=== PATIENT | female | born 1950 | race Two or more races ===

== ENCOUNTER 2024-03-05 10:17 | Inpatient (IN) | payer MEDICARE, OTHER ==
[~2024-03-05] VITALS: Ht 153.9 cm; Wt 69.9 kg
[2024-03-05 11:08] LABS: HEMOGLOBIN. 9.5 g/dL (12.0-16.0); MEAN CORPUSCULAR HEMOGLOBIN 29.7 pg (28.0-32.0); MEAN CORPUSCULAR HGB CONC 32.7 g/dL (31.0-37.0); MEAN CORPUSCULAR VOLUME 90.9 fL (81.0-99.0); MEAN PLATELET VOLUME 7.3 fl (7.4-10.4); PLATELET 193 x1000/uL (130-400); POTASSIUM 4.1 mEq/L (3.5-5.1); RED BLOOD CELL COUNT 3.19 mill/uL (4.2-5.4); RED CELL DISTRIBUTION WIDTH 13.9 % (11.6-14.6); WHITE BLOOD COUNT 6.7 x1000/uL (4.5-11.0)
[2024-03-05 11:09] LABS: CALCIUM 9.4 mg/dL (8.7-10.4)
[2024-03-05 11:14] LABS: CREATININE 2.5 mg/dL (0.6-1.0)
[2024-03-05 11:16] LABS: LACTIC ACID 2.1 mmol/L (0.4-2.0)
[2024-03-05 11:20] LABS: INR 1.1; PROTHROMBIN TIME 11.8 sec (9.6-11.0)
[2024-03-05 11:27] LABS: DIFFERENTIAL COMMENT 1
[2024-03-05] MEDS: SODIUM CHLORIDE 0.9% (SEPSIS BOLUS) IV ONE (11:44)
[2024-03-05] MEDS: PIPERACILLIN/TAZO 3.375G/50ML 50 ML IV ONE (11:44)
[2024-03-05 12:05] LABS: PLATELET ESTIMATE NORMAL
[2024-03-05] MEDS: VANCOMYCIN 1G PREMIX 200 ML IV ONE (12:08)
[2024-03-05 12:20] LABS: CLARITY URINE CLOUDY (CLEAR); COLOR URINE YELLOW (YELLOW); GLUCOSE URINE NEGATIVE (NEGATIVE); KETONES URINE NEGATIVE (NEGATIVE); LEUKOCYTE ESTERASE URINE 3+ (NEGATIVE); NITRITE URINE NEGATIVE (NEGATIVE); OCCULT BLOOD URINE 2+ (NEGATIVE); PH URINE 5.5 (4.5-8.0); PROTEIN URINE TRACE (NEGATIVE); SPECIFIC GRAVITY URINE 1.011 (1.005-1.030); UROBILINOGEN URINE 0.2 E.U./dL (0.2-1.0)
[2024-03-05 12:34] LABS: BACTERIA URINE 4+; RBC URINE 15-25 /hpf (0-2); SQUAMOUS EPITHELIAL CELL URINE 3+ /lpf (RARE/1+); WBC URINE 50-100 /hpf (0-2); YEAST URINE NONE SEEN
[2024-03-05] MEDS: ACETAMINOPHEN 1000MG/100ML 100 ML IV ONE (13:15)
[2024-03-05] MEDS ORDERED: ONDANSETRON HCL 4MG/2ML INJ IV PRN (14:45)
[2024-03-05] MEDS ORDERED: ACETAMINOPHEN 325MG TABLET PO PRN (14:45)
[2024-03-05] MEDS: SODIUM CHLORIDE 0.9% 1,000 ML IV SCH (14:45)
[2024-03-05 14:56] VITALS: BP 89/37; PULSE 127; RESP 20; TEMP 37.4188
[2024-03-05 16:00] VITALS: BP 89/37; PULSE 127; RESP 20; TEMP 37.39188; O2SAT 98
[2024-03-05] MEDS: ENOXAPARIN 30MG/0.3ML SYR SUBCUT SCH (16:00)
[2024-03-05 17:10] LABS: IRON 15 ug/dL (50-170)
[2024-03-05 17:13] LABS: TOTAL IRON BINDING CAPACITY 373 ug/dl (250-425)
[2024-03-05 18:54] LABS: FERRITIN 367 ng/mL (10-291)
[2024-03-05 18:55] LABS: FOLIC ACID (FOLATE) SERUM 6.97 ng/mL (>5.38); VITAMIN B12 SERUM 270 pg/mL (211-911)
[2024-03-05] MEDS: DEXTROSE 50% WATER 50ML SYRINGE IV ONE (19:11)
[2024-03-05] MEDS: PIPERACILLIN/TAZO 3.375G/50ML 50 ML IV SCH (21:23)
[2024-03-05] MEDS: KETOROLAC 15MG/ML VIAL IV NR (23:15)
[2024-03-06] VITALS (38 sets, daily range): BP systolic 81–207; BP diastolic 53–173; PULSE 67–125; RESP 18–35; TEMP 36.05844–36.3918; O2SAT 92–99
[2024-03-06] MEDS: SODIUM CHLORIDE 0.9% (SEPSIS BOLUS) IV ONE (01:30)
[2024-03-06] MEDS: ACETAMINOPHEN 325MG TABLET PO PRN (04:47)
[2024-03-06] MEDS: DEXTROSE 50% WATER 50ML SYRINGE IV PRN (05:38)
[2024-03-06 06:07] LABS: POTASSIUM 3.8 mEq/L (3.5-5.1)
[2024-03-06 06:08] LABS: CALCIUM 8.4 mg/dL (8.7-10.4)
[2024-03-06 06:25] LABS: CREATININE 3.7 mg/dL (0.6-1.0)
[2024-03-06] MEDS: DEXT 5%/0.45% NACL 1000ML 1,000 ML IV SCH (07:15)
[2024-03-06] MEDS: FAMOTIDINE 20MG/2ML VIAL IV SCH (09:32)
[2024-03-06] MEDS: VANCOMYCIN 500MG/100ML IV NR (11:02)
[2024-03-06] MEDS ORDERED: MORPHINE SULFATE 2 MG/ML INJ (NOT FOR IM USE) IV PRN (12:00)
[2024-03-06 12:25] LABS: HEMATOCRIT. 29.3 % (36.0-48.0); HEMOGLOBIN. 8.9 g/dL (12.0-16.0); MEAN CORPUSCULAR HEMOGLOBIN 29.2 pg (28.0-32.0); MEAN CORPUSCULAR HGB CONC 30.5 g/dL (31.0-37.0); MEAN PLATELET VOLUME 8.6 fl (7.4-10.4); PLATELET 104 x1000/uL (130-400); RED BLOOD CELL COUNT 3.06 mill/uL (4.2-5.4); RED CELL DISTRIBUTION WIDTH 15.7 % (11.6-14.6); WHITE BLOOD COUNT 29.5 x1000/uL (4.5-11.0)
[2024-03-06 12:38] LABS: DIFFERENTIAL COMMENT 1; MEAN CORPUSCULAR VOLUME 95.7 fL (81.0-99.0)
[2024-03-06 13:22] LABS: POTASSIUM 4.8 mEq/L (3.5-5.1)
[2024-03-06 13:23] LABS: CALCIUM 8.7 mg/dL (8.7-10.4)
[2024-03-06 13:28] LABS: CREATININE 3.6 mg/dL (0.6-1.0)
[2024-03-06] MEDS: MEROPENEM 500 MG in SODIUM CHLORIDE 0.9% 50 ML IV SCH (14:06)
[2024-03-06] MEDS: NOREPINEPHRINE 8MG/250ML PMX 250 ML IV PRN (15:31)
[2024-03-06 16:27] LABS: LACTIC ACID 11.1 mmol/L (0.4-2.0)
[2024-03-06] MEDS: IPRATROPIUM/ALBUTEROL 0.5-3(2.5)MG/3ML NEB HHN PRN (16:51)
[2024-03-06] MEDS ORDERED: NALOXONE HCL 0.4MG/ML VIAL IV PRN (18:45)
[2024-03-06] MEDS: DEXT 5%/0.9% NACL 1,000 ML IV SCH (18:50)
[2024-03-06 19:22] LABS: ANISOCYTOSIS 1+; PLATELET ESTIMATE DECREASED
[2024-03-07] VITALS (99 sets, daily range): BP systolic 78–148; BP diastolic 38–110; PULSE 91–120; RESP 15–34; TEMP 36.3918–36.9474; O2SAT 88–100
[2024-03-07] MEDS: PHENYLEPHRINE 100 MG in DEXT 5% WATER 240 ML IV PRN (00:53)
[2024-03-07 05:56] LABS: POTASSIUM 4.9 mEq/L (3.5-5.1)
[2024-03-07 05:57] LABS: CALCIUM 8.7 mg/dL (8.7-10.4)
[2024-03-07] MEDS: SODIUM CHLORIDE 0.9% 500 ML IV ONE (08:15)
[2024-03-07 09:46] LABS: HEMATOCRIT. 28.8 % (36.0-48.0); HEMOGLOBIN. 9.3 g/dL (12.0-16.0); MEAN CORPUSCULAR HEMOGLOBIN 29.2 pg (28.0-32.0); MEAN CORPUSCULAR HGB CONC 32.1 g/dL (31.0-37.0); MEAN PLATELET VOLUME 9.4 fl (7.4-10.4); PLATELET 104 x1000/uL (130-400); RED BLOOD CELL COUNT 3.17 mill/uL (4.2-5.4); RED CELL DISTRIBUTION WIDTH 14.7 % (11.6-14.6)
[2024-03-07] MEDS: DEXT 5%/0.45% NACL 1000ML 1,000 ML IV SCH (09:53)
[2024-03-07] MEDS: MIDODRINE HCL 5MG TABLET PO SCH ×2 (09:53→17:57)
[2024-03-07 10:02] LABS: DIFFERENTIAL COMMENT 1
[2024-03-07] MEDS: VANCOMYCIN 500MG/100ML IV SCH (14:20)
[2024-03-07] MEDS ORDERED: SODIUM CHLORIDE 0.45% 500 ML IV NR (15:00)
[2024-03-07 15:17] LABS: PLATELET ESTIMATE SLIGHTLY DECREASED
[2024-03-07] MEDS: MEROPENEM 500MG/50ML 50 ML IV SCH (17:56)
[2024-03-07] MEDS: SODIUM CHLORIDE 0.45% 1,000 ML IV ONE (17:57)
[2024-03-07] MEDS ORDERED: MEROPENEM 1G/100ML 100 ML IV SCH (22:00)
[2024-03-07] MEDS ORDERED: DEXTROSE 50% WATER 50ML SYRINGE IV PRN (23:15)
[2024-03-07] MEDS: DEXTROSE 50% WATER 50ML SYRINGE IV PRN (23:40)
[2024-03-08] VITALS (86 sets, daily range): BP systolic 78–148; BP diastolic 48–95; PULSE 77–107; RESP 10–29; TEMP 36.6696–37.00296; O2SAT 92–100
[2024-03-08 07:21] LABS: HEMATOCRIT. 33.3 % (36.0-48.0); HEMOGLOBIN. 10.2 g/dL (12.0-16.0); MEAN CORPUSCULAR HEMOGLOBIN 28.7 pg (28.0-32.0); MEAN CORPUSCULAR HGB CONC 30.6 g/dL (31.0-37.0); MEAN CORPUSCULAR VOLUME 93.7 fL (81.0-99.0); MEAN PLATELET VOLUME 10.6 fl (7.4-10.4); PLATELET 92 x1000/uL (130-400); RED BLOOD CELL COUNT 3.56 mill/uL (4.2-5.4); RED CELL DISTRIBUTION WIDTH 15.8 % (11.6-14.6)
[2024-03-08 07:25] LABS: POTASSIUM 3.6 mEq/L (3.5-5.1)
[2024-03-08 07:26] LABS: CALCIUM 8.5 mg/dL (8.7-10.4)
[2024-03-08 08:11] LABS: DIFFERENTIAL COMMENT 1
[2024-03-08] MEDS: BLOOD SUGAR DIAGNOSTIC STRIP TEST SCH (08:23)
[2024-03-08] MEDS: DEXT 5%/0.45% NACL 1000ML 1,000 ML IV SCH (08:32)
[2024-03-08 10:42] LABS: ALANINE AMINOTRANSFERASE 149 IU/L (10-49); ALBUMIN 3.1 g/dL (3.2-4.8); ASPARTATE AMINOTRANSFERASE 86 IU/L (<34); BILIRUBIN DIRECT 0.2 mg/dL (<=3.0); BILIRUBIN TOTAL 0.4 mg/dL (0.1-1.0); PHOSPHORUS 2.7 mg/dL (2.5-4.9); PROTEIN TOTAL 6.1 g/dL (6.0-8.3)
[2024-03-08 11:25] LABS: ANISOCYTOSIS 1+; PLATELET ESTIMATE DECREASED
[2024-03-08] MEDS: MEGESTROL ACETATE 400 MG/10 ML UDC PO SCH (17:08)
[2024-03-08] MEDS ORDERED: MEGESTROL ACETATE 20MG TABLET PO SCH (18:00)
[2024-03-08] MEDS: ACETAMINOPHEN 500MG TABLET PO SCH (21:14)
[2024-03-09] VITALS (92 sets, daily range): BP systolic 79–134; BP diastolic 53–74; PULSE 74–96; RESP 13–29; TEMP 36.33624–37.16964; O2SAT 98–100
[2024-03-09] MEDS ORDERED: TRAM50TA3 PO (04:22)
[2024-03-09] MEDS ORDERED: ATOR40TA70 PO (04:22)
[2024-03-09] MEDS ORDERED: LINE600T14 PO (04:22)
[2024-03-09] MEDS ORDERED: FURO20TA4 PO (04:22)
[2024-03-09 09:41] LABS: HEMATOCRIT 27.3 % (36.0-48.0); HEMOGLOBIN 8.6 g/dL (12.0-16.0); MEAN CORPUSCULAR HEMOGLOBIN 29.1 pg (28.0-32.0); MEAN CORPUSCULAR HGB CONC 31.4 g/dL (31.0-37.0); MEAN CORPUSCULAR VOLUME 92.8 fL (81.0-99.0); PLATELET 71 x1000/uL (130-400); RED BLOOD CELL COUNT 2.94 mill/uL (4.2-5.4); RED CELL DISTRIBUTION WIDTH 15.8 % (11.6-14.6); WHITE BLOOD COUNT 37.5 x1000/uL (4.5-11.0)
[2024-03-09 10:50] LABS: POTASSIUM 3.6 mEq/L (3.5-5.1)
[2024-03-09 10:51] LABS: CALCIUM 7.9 mg/dL (8.7-10.4)
[2024-03-09 11:28] LABS: CREATININE 1.3 mg/dL (0.6-1.0)
[2024-03-09] MEDS: MEROPENEM 500MG/50ML 50 ML IV NR (14:47)
[2024-03-09] MEDS: MEROPENEM 1GM/50ML DUPLEX 50 ML IV SCH (21:43)
[2024-03-10] VITALS (44 sets, daily range): BP systolic 96–128; BP diastolic 59–90; PULSE 76–100; RESP 12–27; TEMP 36.6696–37.00296; O2SAT 97–100
[2024-03-10 06:34] LABS: HEMATOCRIT. 29.6 % (36.0-48.0); HEMOGLOBIN. 9.3 g/dL (12.0-16.0); MEAN CORPUSCULAR HEMOGLOBIN 29.1 pg (28.0-32.0); MEAN CORPUSCULAR HGB CONC 31.5 g/dL (31.0-37.0); MEAN CORPUSCULAR VOLUME 92.3 fL (81.0-99.0); MEAN PLATELET VOLUME 9.5 fl (7.4-10.4); PLATELET 76 x1000/uL (130-400); RED BLOOD CELL COUNT 3.21 mill/uL (4.2-5.4); RED CELL DISTRIBUTION WIDTH 15.8 % (11.6-14.6)
[2024-03-10 06:36] LABS: POTASSIUM 3.3 mEq/L (3.5-5.1)
[2024-03-10 06:37] LABS: CALCIUM 8.3 mg/dL (8.7-10.4)
[2024-03-10 06:42] LABS: CREATININE 1.2 mg/dL (0.6-1.0)
[2024-03-10 09:04] LABS: DIFFERENTIAL COMMENT 1
[2024-03-10 16:45] LABS: ANISOCYTOSIS 1+; PLATELET ESTIMATE DECREASED
[2024-03-11] VITALS: BP 94/56; PULSE 86; RESP 19; TEMP 36.33624; O2SAT 100
[2024-03-11 04:00] VITALS: BP 98/50; PULSE 88; RESP 18; TEMP 36.28068; O2SAT 96
[2024-03-11 08:00] VITALS: BP 117/68; PULSE 87; RESP 18; TEMP 36.72516; O2SAT 100
[2024-03-11 12:00] VITALS: BP 109/62; PULSE 85; RESP 18; TEMP 36.61404; O2SAT 97
[2024-03-11 18:00] VITALS: BP 114/63; PULSE 91; RESP 18; TEMP 36.55848; O2SAT 97
[2024-03-11 20:00] VITALS: BP 116/61; PULSE 86; RESP 20; TEMP 36.28068; O2SAT 100
[2024-03-12] VITALS: BP 116/74; PULSE 95; RESP 20; TEMP 36.72516; O2SAT 97
[2024-03-12 04:00] VITALS: BP 113/62; PULSE 89; RESP 18; TEMP 36.50292; O2SAT 97
[2024-03-12 08:00] VITALS: BP 116/61; PULSE 86; RESP 20; TEMP 35.61396; O2SAT 97
[2024-03-12] MEDS ORDERED: LIDOCAINE HCL 1% 10 MG/ML 10ML VIAL ONE (08:37)
[2024-03-12] MEDS ORDERED: IOHEXOL-300 50 ML BOTTLE IV ONE (09:30)
[2024-03-12] MEDS: DOCUSATE SODIUM 100MG CAPSULE PO PRN (11:59)
[2024-03-12 12:00] VITALS: BP_SYST 124; BP_SYST 14; BP_DIAS 124; BP_DIAS 64; PULSE 87; RESP 20; TEMP 36.72516; O2SAT 100
[2024-03-12 15:54] LABS: HEMOGLOBIN. 8.8 g/dL (12.0-16.0); MEAN CORPUSCULAR HEMOGLOBIN 29.2 pg (28.0-32.0); MEAN CORPUSCULAR HGB CONC 32.7 g/dL (31.0-37.0); MEAN CORPUSCULAR VOLUME 89.3 fL (81.0-99.0); MEAN PLATELET VOLUME 8.4 fl (7.4-10.4); PLATELET 203 x1000/uL (130-400); RED BLOOD CELL COUNT 3.02 mill/uL (4.2-5.4); RED CELL DISTRIBUTION WIDTH 15.1 % (11.6-14.6); WHITE BLOOD COUNT 36.3 x1000/uL (4.5-11.0)
[2024-03-12 15:56] LABS: DIFFERENTIAL COMMENT 1
[2024-03-12 16:00] VITALS: BP 117/68; PULSE 97; RESP 20; TEMP 36.50292; O2SAT 100
[2024-03-12 16:01] LABS: CHLORIDE 113 mEq/L (98-107); POTASSIUM 3.1 mEq/L (3.5-5.1); SODIUM 143 mEq/L (136-145)
[2024-03-12 16:02] LABS: CALCIUM 8.4 mg/dL (8.7-10.4); CARBON DIOXIDE 22 mEq/L (21-32)
[2024-03-12 16:07] LABS: CREATININE 0.8 mg/dL (0.6-1.0); GLUCOSE 133 mg/dL (70-105); UREA NITROGEN BLOOD 17 mg/dL (9-23)
[2024-03-12 18:02] LABS: PLATELET ESTIMATE NORMAL
[2024-03-12] MEDS: POTASSIUM CHLORIDE 20MEQ TABLET SR PO SCH (18:29)
[2024-03-12 20:00] VITALS: BP 114/66; PULSE 101; RESP 19; TEMP 36.6696; O2SAT 99
[2024-03-13] VITALS (7 sets, daily range): BP systolic 107–124; BP diastolic 55–71; PULSE 68–105; RESP 18–20; TEMP 36.16956–37.16964; O2SAT 98–100
[2024-03-13 08:18] LABS: DIFFERENTIAL COMMENT 1; HEMATOCRIT. 24.7 % (36.0-48.0); MEAN CORPUSCULAR HEMOGLOBIN 28.7 pg (28.0-32.0); MEAN CORPUSCULAR HGB CONC 32.2 g/dL (31.0-37.0); MEAN CORPUSCULAR VOLUME 89.3 fL (81.0-99.0); MEAN PLATELET VOLUME 8.5 fl (7.4-10.4); PLATELET 239 x1000/uL (130-400); RED BLOOD CELL COUNT 2.77 mill/uL (4.2-5.4); RED CELL DISTRIBUTION WIDTH 14.8 % (11.6-14.6)
[2024-03-13 08:24] LABS: CHLORIDE 115 mEq/L (98-107); POTASSIUM 3.7 mEq/L (3.5-5.1); SODIUM 144 mEq/L (136-145)
[2024-03-13 08:25] LABS: CARBON DIOXIDE 23 mEq/L (21-32)
[2024-03-13 08:30] LABS: CREATININE 0.8 mg/dL (0.6-1.0); GLUCOSE 89 mg/dL (70-105); UREA NITROGEN BLOOD 16 mg/dL (9-23)
[2024-03-13] MEDS: MIDODRINE HCL 5MG TABLET PO SCH (08:39)
[2024-03-13] MEDS ORDERED: MIDODRINE HCL 5MG TABLET PO PRN (09:45)
[2024-03-13] MEDS: MAGNESIUM 4 G PREMIX 100 ML IV NR (11:29)
[2024-03-13 18:04] LABS: PLATELET ESTIMATE NORMAL
[2024-03-14] VITALS: BP 124/60; PULSE 93; RESP 19; TEMP 36.61404; O2SAT 97
== END 2024-03-14 00:10 | disposition short-term general hospital (02) | DRG 871 ==
LOC: ER 10:17 → 7WST 13:23 → EDBEDREQ 13:36 → EDBEDREQTM 13:36 → CVICU 03-06 15:16 → 8WST 03-10 18:27
PROVIDERS: ADMIT Preventive Medicine Clinical Informatics; ATTEND Internal Medicine
PROC: 02HV33Z Insertion of Infusion Device into Superior Vena Cava, Percutaneous Approach (ICD-10-PCS; principal; 2024-03-12)
PROC: B5181ZA Fluoroscopy of Superior Vena Cava using Low Osmolar Contrast, Guidance (ICD-10-PCS; 2024-03-12)
PROC: B548ZZA Ultrasonography of Superior Vena Cava, Guidance (ICD-10-PCS; 2024-03-12)
DX: A41.51 Sepsis due to Escherichia coli [E. coli] (principal); R65.21 Severe sepsis with septic shock; N17.9 Acute kidney failure, unspecified; N13.6 Pyonephrosis; E87.20 Acidosis, unspecified; G93.40 Encephalopathy, unspecified; J90 Pleural effusion, not elsewhere classified; N20.0 Calculus of kidney; D64.9 Anemia, unspecified; G35 Multiple sclerosis; D25.9 Leiomyoma of uterus, unspecified; D69.6 Thrombocytopenia, unspecified; Z85.3 Personal history of malignant neoplasm of breast; Z87.440 Personal history of urinary (tract) infections; Z87.442 Personal history of urinary calculi; Z88.0 Allergy status to penicillin; B96.20 Unspecified Escherichia coli [E. coli] as the cause of diseases classified elsewhere
CPT/HCPCS: 36415; 36573; 71045; 74176; 76770; 80048; 80076; 80202; 81003; 82310; 82550; 82607; 82728; 82746; 82962; 83036; 83540; 83550; 83605; 83735; 84100; 84145; 85025; 85027; 87077; 87186; 93005; 93970; 94070; 94640; 99291; C1725; C1769; C1893; J1650; J1885; J2185; J2543; J3370; J3475; J3490; J7030; Q9967; J0131